=== PATIENT | male | born 1970 | race Two or more races ===

== ENCOUNTER 2020-05-04 11:16 | Emergency (ER) | payer OTHER ==
[~2020-05-04] VITALS: Ht 170.2 cm; Wt 79.4 kg
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
--- NOTE | 2020-05-04 11:22 | NUR ---
DR QUIROZ AT BEDSIDE FOR EVAL.
--- NOTE | 2020-05-04 11:30 | NUR ---
IV LINE STARTED BLOOD DRAWN AND SENT TO LAB.
[2020-05-04] MEDS: IV NS 0.9% 1,000 ML BAG IV ONE (11:46)
[2020-05-04 11:56] LABS: BASOPHILS # (AUTO) 0.1 /CMM (0.0-0.2); BASOPHILS % (AUTO) 0.7 % (0.0-2.0); EOSINOPHILS % (AUTO) 3.7 % (0.0-6.0); HEMATOCRIT 44 % (39-51); HEMOGLOBIN 14.8 g/dL (13.5-17.5); LYMPHOCYTES % (AUTO) 13.4 % (20.0-44.0); MEAN CORPUSCULAR HGB CONC 34 g/dl (31.0-36.0); MEAN CORPUSCULAR VOLUME 90 fL (80-96); MONOCYTES # (AUTO) 0.6 /CMM (0.1-1.30); MONOCYTES % (AUTO) 8.5 % (2.0-12.0); NEUTROPHILS # (AUTO) 5.3 /CMM (1.8-8.9); NEUTROPHILS % (AUTO) 73.7 % (43.0-81.0); PLATELET COUNT (AUTO) 158 /CMM (150-450); RED BLOOD CELL COUNT(AUTO) 4.85 MIL/uL (4.5-6.0); WHITE BLOOD COUNT (AUTO) 7.2 K/uL (4.3-11.0)
[2020-05-04 12:09] LABS: CALCIUM, SERUM 8.5 mg/dL (8.5-10.1); CREATININE 0.7 mg/dL (0.6-1.3)
--- NOTE | 2020-05-04 12:10 | NUR ---
PT TO RADIOLOGY FOR HEAD CT SCAN VIA [facility].
[2020-05-04] MEDS ORDERED: LISI40TA4 PO (12:17)
--- NOTE | 2020-05-04 13:27 | NUR ---
SPOKE TO VIKY BALDWIN FROM [facility]. WANTS US TO FAX CLINICALS AND FACESHEET TO [phone]. GOOD CALL BACK NUMBER FOR [facility] [phone].
--- NOTE | 2020-05-04 13:30 | NUR ---
ER DOC TALKING TO EPIC
--- NOTE | 2020-05-04 14:43 | NUR ---
Insurance called to give authorization for transport Auth# [id number]
--- NOTE | 2020-05-04 15:36 | NUR ---
VIKY WRIGHT FROM [facility] [phone]. CM CALLED TO GIVE BED ASSIGNMENT. PT GOING TO [facility]-A. NUMBER FOR REPORT [phone].
--- NOTE | 2020-05-04 15:43 | NUR ---
CALLED [facility] FOR TRANSPORT TO [facility]. ETA [phone].
--- NOTE | 2020-05-04 16:36 | NUR ---
Patient does not wish to proceed with medical care recommended by Dr. Black. Patient given information related to possible complications, up to and including , which could occur as a result of leaving the hospital at this time. Patient verbalizes understanding of risks involved due to leaving against medical advice. Patient has signed AMA form.
[2020-05-04 16:39] VITALS: BP 142/98
== END 2020-05-04 16:40 | disposition left against medical advice (07) ==
LOC: ER 11:18
DX: I21.4 Non-ST elevation (NSTEMI) myocardial infarction (principal); R07.89 Other chest pain; R51 Headache; I10 Essential (primary) hypertension; Z86.73 Personal history of transient ischemic attack (TIA), and cerebral infarction without residual deficits; Z79.899 Other long term (current) drug therapy
CPT/HCPCS: 36415; 70450; 71045; 80048; 83880; 84484; 85025; 85730; 93005 ×3; 99291; J7030